=== PATIENT | female | born 1970 | race Caucasian/White ===

== ENCOUNTER → 2019-03-03 | Outpatient (CLI) | payer MEDICAID ==
[~2019-03-03] MED LIST: BENZ100C18 PO; DOXY100C2 PO; MECL25TA56 PO; METH4TAB PO
--- NOTE | 2019-03-04 11:13 | Diagnostic Imaging Report ---
INDICATION: Bilateral screening with 3-D tomosynthesis and cad. EXAMINATION: Digital mammogram. This is the patient's baseline study. At this time there are no current complaints. The fibroglandular tissue in both breasts is heterogeneously dense. This does limit the sensitivity of this exam. In the 1-2 o'clock position of the right breast approximately 2 CM from the nipple there is a 5 MM oval benign-appearing nodular density. I would recommend that ultrasound be performed to better characterize this finding. There is no primary or secondary sign of malignancy noted. IMPRESSION: Ultrasound would be recommended for further evaluation of the small benign-appearing nodular density in the 1-2 o'clock position of the right breast. ACR BI-RADS Category 0: Incomplete. (Needs additional imaging evaluation). Result letter will be mailed to the patient. Note: At least 10% of breast cancer is not imaged by mammography. Dictated by: Dictated on workstation # [id number]
== END ==
LOC: RAD 14:08
PROVIDERS: ATTEND Pediatrics
DX: Z12.31 Encounter for screening mammogram for malignant neoplasm of breast (principal)
CPT/HCPCS: 77067

== ENCOUNTER → 2019-03-13 | Outpatient (CLI) | payer MEDICAID ==
--- NOTE | 2019-03-13 10:09 | Diagnostic Imaging Report ---
Indication: Right breast density. Study is performed for further evaluation. Correlation is made with recent screening mammogram from 03/03/2019. Interrogation of the upper inner right breast was performed. At the 2 o'clock location of the right breast, 1 cm from the nipple, there is a tiny cyst approximately 3 mm in size. This likely accounts for the mammographic density. No internal vascularity is seen. No other abnormalities are detected. Impression: BI-RADS 2 Tiny cyst 2 o'clock location of the right breast, likely accounting for the mammographic density. The patient may return to routine annual screening mammography. ACR BI-RADS Category 2: Benign findings. Result letter will be mailed to the patient. Note: At least 10% of breast cancer is not imaged by mammography. Dictated by: Dictated on workstation # [id number]
== END ==
LOC: RAD 09:10
PROVIDERS: ATTEND Pediatrics
DX: R92.2 Inconclusive mammogram (principal)

== ENCOUNTER 2019-11-22 15:08 | Emergency (ER) | payer MEDICAID | END 2019-11-22 15:32 | disposition left against medical advice (07) | LOC: EDUNIT# 15:08 → ER 15:09 | DX: R52 Pain, unspecified (principal); R05 Cough ==

== ENCOUNTER 2022-05-24 13:05 | Emergency (ER) | payer MEDICAID ==
[~2022-05-24] VITALS: Ht 157.5 cm; Wt 54.4 kg
--- NOTE | 2022-05-24 13:41 | ED Dyspnea ---
General Stated Complaint: TROUBLE BREATHING Source of Information: Patient Exam Limitations: No Limitations History of Present Illness Date Seen by Provider: May 24, 2022 Time Seen by Provider: 13:20 Initial Comments 51-year-old female presents for shortness of breath. Symptoms present for about 2 weeks. She has a minimally productive cough. Also has some chills at home. No chest pain. Shortness of breath is worse with exertion. No sick contacts. She does endorse a history of emphysema. Allergies and Home Medications Allergies Coded Allergies: Codeine (Unverified Allergy, Intermediate, EDEMA, 07/02/10) aspirin (Unverified Allergy, Mild, EDEMA, 07/02/10) Uncoded Allergies: ANICIN (Allergy, Unknown, 07/02/10) Patient Home Medication List Home Medication List Reviewed: Yes Meclizine Hcl (Antivert 25 Mg) 25 Mg Tablet, 1 EACH PO QID PRN Prescribed by: MEREDITH TORRE on 05/23/12 0208 Review of Systems Review of Systems Constitutional: chills EENTM: no symptoms reported Respiratory: cough, dyspnea on exertion, short of breath Cardiovascular: no symptoms reported Gastrointestinal: no symptoms reported Genitourinary: no symptoms reported Musculoskeletal: no symptoms reported Skin: no symptoms reported Psychiatric/Neurological: No Symptoms Reported Endocrine: No Symptoms Reported Hematologic/Lymphatic: No Symptoms Reported Past Akjimnn-Pazmby-Gteims Hx Patient Social History Tobacco Use?: Yes Substance use?: No Alcohol Use?: No Past Medical History COPD Family Medical History Reviewed Nursing Family Hx No Pertinent Family Hx Physical Exam Vital Signs Vital Signs - First Documented Capillary Refill : Height, Weight, BMI Height: '" Weight: lbs. oz. kg; BMI Method:Stated General Appearance: No Apparent Distress, WD/WN HEENT: TMs Normal, Normal ENT Inspection, Pharynx Normal Neck: Full Range of Motion, Normal Inspection, Non Tender Respiratory: Chest Non Tender, Lungs Clear, Normal Breath Sounds, No Accessory Muscle Use, No Respiratory Distress Cardiovascular: Regular Rate, Rhythm, No Edema, No Gallop, No JVD, No Murmur, Normal Peripheral Pulses Gastrointestinal: Normal Bowel Sounds, No Organomegaly, No Pulsatile Mass, Non Tender, Soft Extremity: Normal Capillary Refill, Normal Inspection, Normal Range of Motion, Non Tender, No Calf Tenderness Neurologic/Psychiatric: Alert, Oriented x3, No Motor/Sensory Deficits Skin: Normal Color, Warm/Dry Progress/Results/Core Measures Results/Orders Lab Results Laboratory Tests Test 05/24/22 13:19 05/24/22 14:00 Range/Units SARS-CoV-2 RNA (RT-PCR) Not Detected Not Detecte White Blood Count 8.5 4.3-11.0 10^3/uL Red Blood Count 4.48 3.80-5.11 10^6/uL Hemoglobin 13.7 11.5-16.0 g/dL Hematocrit 40 35-52 % Mean Corpuscular Volume 89 80-99 fL Mean Corpuscular Hemoglobin 31 25-34 pg Mean Corpuscular Hemoglobin Concent 34 32-36 g/dL Red Cell Distribution Width 11.7 10.0-14.5 % Platelet Count 393 130-400 10^3/uL Mean Platelet Volume 9.2 9.0-12.2 fL Immature Granulocyte % (Auto) 0 % Neutrophils (%) (Auto) 64 42-75 % Lymphocytes (%) (Auto) 25 12-44 % Monocytes (%) (Auto) 7 0-12 % Eosinophils (%) (Auto) 2 0-10 % Basophils (%) (Auto) 1 0-10 % Neutrophils # (Auto) 5.5 1.8-7.8 10^3/uL Lymphocytes # (Auto) 2.2 1.0-4.0 10^3/uL Monocytes # (Auto) 0.6 0.0-1.0 10^3/uL Eosinophils # (Auto) 0.2 0.0-0.3 10^3/uL Basophils # (Auto) 0.1 0.0-0.1 10^3/uL Immature Granulocyte # (Auto) 0.0 0.0-0.1 10^3/uL Sodium Level 139 135-145 MMOL/L Potassium Level 3.9 3.6-5.0 MMOL/L Chloride Level 107 98-107 MMOL/L Carbon Dioxide Level 23 21-32 MMOL/L Anion Gap 9 5-14 MMOL/L Blood Urea Nitrogen 13 7-18 MG/DL Creatinine 0.62 0.60-1.30 MG/DL Estimat Glomerular Filtration Rate 106 BUN/Creatinine Ratio 21 Glucose Level 150 H 70-105 MG/DL Calcium Level 9.1 8.5-10.1 MG/DL Troponin I < 0.028 <0.028 NG/ML My Orders Orders - HO,GLYNN L DO Chest 1 View, Ap/Pa Only (05/24/22 13:38) Cbc With Automated Diff (05/24/22 13:38) Basic Metabolic Panel (05/24/22 13:38) Covid 19 Inhouse Test (05/24/22 13:38) Troponin I Sully (05/24/22 13:41) Ekg Tracing (05/24/22 13:41) Vital Signs/I&O 05/24/22 05/24/22 13:14 13:14 Temp 36.6 Pulse 90 Resp 18 B/P (MAP) 158/85 (109) Pulse Ox 96 O2 Delivery Room Air Room Air Diagnostic Imaging Diagonstic Imaging: Xray Plain Films/CT/US/NM/MRI: chest Comments Negative for any acute findings Departure Communication (Admissions) Patient is hemodynamically stable. X-rays negative. COVID test negative. Oxygen saturation normal with no respiratory distress. Will treat for chronic bronchitis, COPD exacerbation. Discharged with antibiotics and steroids and otherwise stable condition. Patient is comfortable with current plan of care Impression Primary Impression: Bronchitis Disposition: 01 HOME, SELF-CARE Condition: Stable Departure-Patient Inst. Referrals: FANTASMA DUBOSE MD (PCP/Family) Primary Care Physician Patient Instructions: Chronic Bronchitis (DC) Add. Discharge Instructions: Please take the antibiotics as prescribed until they are gone. Use the steroid medicine daily until it is gone. Take these in the mornings so they dont make you jittery. Return to the emergency department for any severe concerns. Follow-up with your doctor in 2 to 3 days. Scripts Prednisone (Prednisone) 50 Mg Tab 50 MG PO DAILY for 5 Days, #5 TAB Prov: GLYNN TEAGUE DO 05/24/22 Doxycycline Hyclate (Doxycycline Hyclate) 100 Mg Capsule 100 MG PO BID for 7 Days, #14 CAP Prov: HOJAYNE MelloDanya Dumas DO 05/24/22 GLYNN TEAGUE DO May 24, 2022 13:41
[2022-05-24 14:14] LABS: BASOPHILS # (AUTO) 0.1 10^3/uL (0.0-0.1); BASOPHILS % (AUTO) 1 % (0-10); EOSINOPHILS # (AUTO) 0.2 10^3/uL (0.0-0.3); EOSINOPHILS % (AUTO) 2 % (0-10); HEMATOCRIT 40 % (35-52); HEMOGLOBIN 13.7 g/dL (11.5-16.0); LYMPHOCYTES # (AUTO) 2.2 10^3/uL (1.0-4.0); LYMPHOCYTES % (AUTO) 25 % (12-44); MEAN CORPUSCULAR HEMOGLOBIN 31 pg (25-34); MEAN CORPUSCULAR HGB CONC 34 g/dL (32-36); MEAN CORPUSCULAR VOLUME 89 fL (80-99); MEAN PLATELET VOLUME 9.2 fL (9.0-12.2); MONOCYTES # (AUTO) 0.6 10^3/uL (0.0-1.0); MONOCYTES % (AUTO) 7 % (0-12); NEUTROPHILS # (AUTO) 5.5 10^3/uL (1.8-7.8); NEUTROPHILS % (AUTO) 64 % (42-75); PLATELET COUNT 393 10^3/uL (130-400); WHITE BLOOD COUNT 8.5 10^3/uL (4.3-11.0)
[2022-05-24 14:32] LABS: CHLORIDE 107 MMOL/L (98-107); POTASSIUM 3.9 MMOL/L (3.6-5.0); SODIUM 139 MMOL/L (135-145)
[2022-05-24 14:33] LABS: CALCIUM 9.1 MG/DL (8.5-10.1)
[2022-05-24 14:34] LABS: GLUCOSE 150 MG/DL (70-105)
[2022-05-24 14:35] LABS: CARBON DIOXIDE 23 MMOL/L (21-32)
[2022-05-24 14:37] LABS: CREATININE SERUM 0.62 MG/DL (0.60-1.30)
[2022-05-24 14:38] LABS: BUN/CREATININE RATIO 21; GFR ESTIMATED 106
[2022-05-24] MEDS ORDERED: PRD50T PO (15:16)
[2022-05-24] MEDS ORDERED: DOXY100C5 PO (15:16)
--- NOTE | 2022-05-24 15:27 | Diagnostic Imaging Report ---
INDICATION: Chest pain. TECHNIQUE: Single PA view of the chest is obtained. COMPARISON: There is no previous study for comparison. FINDINGS: Heart size and pulmonary vascularity are within normal limits. There is air trapping, bilaterally. No pneumothorax, consolidation or other adverse change is identified. IMPRESSION: Air trapping, suggestive of emphysema or reactive airway disease. Otherwise, no acute abnormality is detected. Dictated by: Dictated on workstation # [id number]
[2022-05-24 15:30] VITALS: BP 152/94
== END 2022-05-24 15:30 | disposition home or self-care (01) ==
LOC: EDUNIT# 13:05 → ER 13:08
DX: J44.9 Chronic obstructive pulmonary disease, unspecified (principal); Z72.0 Tobacco use; Z20.822 Contact with and (suspected) exposure to COVID-19; Z28.310 Unvaccinated for COVID-19
CPT/HCPCS: 36415; 71045; 80048; 84484; 85025; 87636; 93005